=== PATIENT | male | born 1975 | race African-American/Black ===

== ENCOUNTER 2019-04-29 13:45 | Emergency (ER) | payer SELFPAY ==
--- NOTE | 2019-04-29 13:50 | EDM.PDOC ---
ED HPI GENERAL MEDICAL PROBLEM - General Chief Complaint: Chest Pain Stated Complaint: CHEST DISCOMFORT Time Seen by Provider: 04/29/19 13:50 Source of Information: Reports: Patient History Limitations: Reports: No Limitations - History of Present Illness INITIAL COMMENTS - FREE TEXT/NARRATIVE: History of present illness: []Patient has a long history of untreated high blood pressure as well as a strong family history for high blood pressure. He was having a job physical today and his blood pressure was 189/110 he was told to go straight to the ER for reevaluation. He did not have any symptoms at the time however on the drive over states he had 1-2 seconds of left-sided chest pain that felt like a "string " pulling on his lower left ribs. Denies shortness of breath, headache, blurry vision, back pain and has no chest pain at this time. Review of systems: As per history of present illness and below otherwise all systems reviewed and negative. Past medical history: As per history of present illness and as reviewed below otherwise noncontributory. Surgical history: As per history of present illness and as reviewed below otherwise noncontributory. Social history: No reported history of drug or alcohol abuse. Family history: As per history of present illness and as reviewed below otherwise noncontributory. Physical exam: General: Well developed, well nourished in NAD HEENT: Atraumatic, normocephalic, pupils reactive, negative for conjunctival pallor or scleral icterus, mucous membranes moist, throat clear, neck supple, nontender, trachea midline. Lungs: Clear to auscultation, breath sounds equal bilaterally, chest nontender. Heart: S1S2, regular, negative for clicks, rubs, or JVD. Abdomen: NABS, Soft, nondistended, nontender. Negative for masses or hepatosplenomegaly. Negative for costovertebral tenderness. Pelvis: Stable nontender. Genitourinary: Deferred. Rectal: Deferred. Extremities: Atraumatic, negative for cords or calf pain. Neurovascular unremarkable. Neuro: Awake, alert, oriented. Cranial nerves II through XII unremarkable. Cerebellum unremarkable. Motor and sensory unremarkable throughout. Exam nonfocal. Skin:warm and dry Diagnostics: CBC, chemistry, troponin, EKG, chest x-ray Therapeutics: Clonidine, labetalol ED Course: Stable and asymptomatic Impression: Uncontrolled chronic hypertension Prescriptions: none Plan: Take meds as directed, follow up with your primary care physician, return to ER if symptoms worsen or change. Definitive disposition and diagnosis as appropriate pending reevaluation and review of above. - Related Data Allergies Allergy/AdvReac Type Severity Reaction Status Date / Time No Known Allergies Allergy Verified 04/29/19 14:04 Home Meds: Home Meds . [No Known Home Meds] 04/29/19 [History] ED ROS GENERAL - Review of Systems Review Of Systems: See Below ED EXAM, GENERAL - Physical Exam Exam: See Below Course - Vital Signs Last Recorded V/S: Last Vital Signs Temp 97 F 04/29/19 14:04 Pulse 74 04/29/19 14:44 Resp 16 04/29/19 14:44 BP 195/114 H 04/29/19 14:44 Pulse Ox 98 04/29/19 14:44 - Orders/Labs/Meds Orders: Active Orders 24 hr Category Date Time Status EKG Documentation Completion [RC] STAT Care 04/29/19 13:58 Active Sodium Chloride 0.9% [Saline Flush] Med 04/29/19 13:58 Active 10 ml FLUSH ASDIRECTED PRN Sodium Chloride 0.9% [Saline Flush] Med 04/29/19 13:58 Active 2.5 ml FLUSH ASDIRECTED PRN Saline Lock Insert [OM.PC] Stat Oth 04/29/19 13:57 Ordered Medication Orders Sodium Chloride (Saline Flush) 10 ml FLUSH ASDIRECTED PRN PRN Reason: Keep Vein Open Sodium Chloride (Saline Flush) 2.5 ml FLUSH ASDIRECTED PRN PRN Reason: Keep Vein Open Labs: Laboratory Tests 04/29/19 04/29/19 Range/Units 13:56 14:30 WBC 8.00 (4.0-11.0) K/uL RBC 5.22 (4.50-5.90) M/uL Hgb 15.4 (13.0-17.0) g/dL Hct 45.5 (38.0-50.0) % MCV 87.2 (80.0-98.0) fL MCH 29.5 (27.0-32.0) pg MCHC 33.8 (31.0-37.0) g/dL RDW Std Deviation 44.2 (28.0-62.0) fl RDW Coeff of Braden 14 (11.0-15.0) % Plt Count 218 (150-400) K/uL MPV 10.50 (7.40-12.00) fL Neut % (Auto) 55.4 (48.0-80.0) % Lymph % (Auto) 33.5 (16.0-40.0) % [place] % (Auto) 8.1 (0.0-15.0) % Eos % (Auto) 2.5 (0.0-7.0) % Baso % (Auto) 0.5 (0.0-1.5) % Neut # (Auto) 4.4 (1.4-5.7) K/uL Lymph # (Auto) 2.7 H (0.6-2.4) K/uL [place] # (Auto) 0.7 (0.0-0.8) K/uL Eos # (Auto) 0.2 (0.0-0.7) K/uL Baso # (Auto) 0.0 (0.0-0.1) K/uL Nucleated RBC % 0.0 /100WBC Nucleated RBCs # 0 K/uL Sodium 140 (136-148) mmol/L Potassium 3.8 (3.5-5.1) mmol/L Chloride 102 (98-107) mmol/L Carbon Dioxide 29.1 (21.0-32.0) mmol/L BUN 10 (7.0-18.0) mg/dL Creatinine 1.2 (0.8-1.3) mg/dL Est Cr Clr Drug Dosing 80.19 mL/min Estimated GFR (MDRD) > 60.0 ml/min Glucose 96 (74-106) mg/dL Calcium 9.0 (8.5-10.1) mg/dL Total Bilirubin 0.6 (0.2-1.0) mg/dL AST 18 (15-37) IU/L ALT 30 (14-63) IU/L Alkaline Phosphatase 87 (46-116) U/L Troponin I < 0.050 (0.000-0.056) ng/mL Total Protein 7.9 (6.4-8.2) g/dL Albumin 3.7 (3.4-5.0) g/dL Globulin 4.2 H (2.6-4.0) g/dL Albumin/Globulin Ratio 0.9 (0.9-1.6) Meds: Medications Generic Name Dose Route Start Last Admin Trade Name Freq PRN Reason Stop Dose Admin Sodium Chloride 10 ml 04/29/19 13:58 Saline Flush FLUSH ASDIRECTED PRN Keep Vein Open Sodium Chloride 2.5 ml 04/29/19 13:58 Saline Flush FLUSH ASDIRECTED PRN Keep Vein Open Discontinued Medications Generic Name Dose Route Start Last Admin Trade Name Freq PRN Reason Stop Dose Admin Clonidine HCl 0.2 mg 04/29/19 13:58 04/29/19 14:14 Catapres PO 04/29/19 13:59 0.2 mg ONETIME ONE Administration Labetalol HCl 20 mg 04/29/19 14:29 04/29/19 14:45 Normodyne IVPUSH 04/29/19 14:30 4 ml ONETIME ONE Administration Protocol Departure - Departure Time of Disposition: 15:21 Disposition: Home, Self-Care 01 Condition: Good Clinical Impression: Uncontrolled hypertension Referrals: PCP,Unobtain [Primary Care Provider] - Forms: ED Department Discharge Additional Instructions: The following information is given to patients seen in the emergency department who are being discharged to home. This information is to outline your options for follow-up care. We provide all patients seen in our emergency department with a follow-up referral. The need for follow-up, as well as the timing and circumstances, are variable depending upon the specifics of your emergency department visit. If you don't have a primary care physician on staff, we will provide you with a referral. We always advise you to contact your personal physician following an emergency department visit to inform them of the circumstance of the visit and for follow-up with them and/or the need for any referrals to a consulting specialist. The emergency department will also refer you to a specialist when appropriate. This referral assures that you have the opportunity for follow-up care with a specialist. All of these measure are taken in an effort to provide you with optimal care, which includes your follow-up. Under all circumstances we always encourage you to contact your private physician who remains a resource for coordinating your care. When calling for follow-up care, please make the office aware that this follow-up is from your recent emergency room visit. If for any reason you are refused follow-up, please contact the [facility] Emergency Department at and asked to speak to the emergency department charge nurse. Take meds as directed, follow up with your primary care physician, return to ER if symptoms worsen or change. [facility] [address] [place] [id number] - My Orders Last 24 Hours: My Active Orders 04/29/19 13:57 Saline Lock Insert [OM.PC] Stat 04/29/19 13:58 EKG Documentation Completion [RC] STAT Sodium Chloride 0.9% [Saline Flush] 10 ml FLUSH ASDIRECTED PRN Sodium Chloride 0.9% [Saline Flush] 2.5 ml FLUSH ASDIRECTED PRN - Assessment/Plan Last 24 Hours: My Active Orders 04/29/19 13:57 Saline Lock Insert [OM.PC] Stat 04/29/19 13:58 EKG Documentation Completion [RC] STAT Sodium Chloride 0.9% [Saline Flush] 10 ml FLUSH ASDIRECTED PRN Sodium Chloride 0.9% [Saline Flush] 2.5 ml FLUSH ASDIRECTED PRN
[2019-04-29] MEDS ORDERED: cloNIDine 0.1 MG Tab PO ONE (13:58)
[2019-04-29] MEDS ORDERED: Sodium Chloride 0.9% 2.5 ML Syringe FLUSH PRN (13:58)
[2019-04-29] MEDS ORDERED: Sodium Chloride 0.9% 10 ML Syringe FLUSH PRN (13:58)
[2019-04-29] MEDS ORDERED: Labetalol 100 MG/20 ML MDV IVPUSH ONE (14:29)
--- NOTE | 2019-04-29 14:46 | CR ---
Chest: Portable view of the chest was obtained. Comparison: No previous chest x-ray. Heart size and mediastinum are normal. Lungs are clear. Bony structures are grossly intact. Impression: Nothing acute is seen on portable chest x-ray. Diagnostic code #1 MTDD
[2019-04-29 15:10] LABS: BLOOD UREA NITROGEN,BUN 10 mg/dL (7.0-18.0); CARBON DIOXIDE,CO2 29.1 mmol/L (21.0-32.0); CHLORIDE,CL 102 mmol/L (98-107); GLUCOSE RANDOM 96 mg/dL (74-106); POTASSIUM,K 3.8 mmol/L (3.5-5.1); SODIUM,NA 140 mmol/L (136-148)
== END 2019-04-29 16:00 | disposition home or self-care (01) ==
LOC: MW.ED 13:45
DX: I10 Essential (primary) hypertension (principal)
CPT/HCPCS: 36415; 71045; 80053; 84484; 85025; 93005; 96374; 99285; A9270; J3490; 99283

== ENCOUNTER 2020-08-21 23:04 | Emergency (ER) | payer SELFPAY ==
[2020-08-21] MEDS ORDERED: Sodium Chloride 0.9% 2.5 ML Syringe FLUSH PRN (23:20)
[2020-08-21] MEDS ORDERED: cloNIDine 0.1 MG Tab PO ONE (23:20)
[2020-08-21] MEDS ORDERED: Sodium Chloride 0.9% 10 ML Syringe FLUSH PRN (23:20)
[2020-08-21] MEDS ORDERED: Diltiazem 180 MG Cap.CD PO ONE (23:46)
--- NOTE | 2020-08-21 23:46 | EDM.PDOC ---
ED HPI GENERAL MEDICAL PROBLEM - General Chief Complaint: General Stated Complaint: MEDICAL CLEARANCE Time Seen by Provider: 08/21/20 23:10 - History of Present Illness INITIAL COMMENTS - FREE TEXT/NARRATIVE: HISTORY AND PHYSICAL: History of present illness: This is a 45-year-old gentleman with a history significant for noncompliance with hypertension who presents ER today for medical clearance by law enforcement and was noted to have an elevated blood pressure and so was presented to the ED for evaluation. Patient reports that he has been told he has had hypertension for quite some time however he has not been financially able to afford seeing of family physician or getting his medications. Patient reports that his systolic blood pressure is usually greater than 200 and leaves it usually in the 220 range. Patient reports his diastolic blood pressure is always greater than 120. Patient reports that his entire family suffers with hypertension and diabetes. He reports that he has had no symptoms and that his blood pressure has been elevated for quite some time and he has been asymptomatic. Patient denies any recent fevers, shakes, chills, nausea, vomiting, diarrhea, dysuria, frequency, urgency, chest pain, shortness of breath, lower extremity edema, urinary changes, visual changes, altered mentation, confusion, weakness to his upper or lower extremities. Review of systems: As per history of present illness and below otherwise all systems reviewed and negative. Past medical history: As per history of present illness and as reviewed below otherwise noncontributory. Surgical history: As per history of present illness and as reviewed below otherwise noncontributory. Social history: No reported history of drug or alcohol abuse. Family history: As per history of present illness and as reviewed below otherwise noncontributory. Physical exam: This patient was seen and evaluated during the 2019 SARS-CoV-2 novel coronavirus pandemic period. Community viral transmission is ongoing at time of this encounter and the emergency department is operating under pandemic response procedures. Constitutional: Patient is oriented to person, place, and time. Appears well- developed and well-nourished. No distress. HEENT: Moist mucous membranes Head: Normocephalic and atraumatic Eyes: Right eye exhibits no discharge. Left eye exhibits no discharge. No scleral icterus, pupils equally round and reactive to light. Extraocular motions intact, no nystagmus. Neck: Normal range of motion. No tracheal deviation present. Cardiovascular: Normal rate and regular rhythm. No murmurs gallops or rubs Pulmonary: Effort normal, no respiratory distress. No wheezing rales or rhonchi Abdominal: No distention, soft, nontender, no rebound or guarding, no palpable mass, no pulsatile mass. Musculoskeletal: Normal range of motion, no lower extremity edema, no calf tenderness Neurologic: Alert and oriented to person, place and time. Skin: [place], warm and dry. Psychiatric: Normal mood and affect. Behavior is normal. Judgment and thought content normal. Nursing note and vital signs have been reviewed Diagnostics: CBC, CMP EKG: As interpreted by ER physician: Sandra: Nonspecific ST-T wave abnormalities Normal axis No evidence of ST elevation CA Normal sinus rhythm heart rate of 97 Therapeutics: Clonidine 0.2 mg p.o. Cardizem CD 180 mg p.o. Assessment and plan: This is a 45-year-old gentleman with a history of chronic hypertension that has been poorly controlled and the patient's been extremely noncompliant. Patient reports he does have insurance through work however he has been told that he would have to pay up to $2000 as a co-pay/deductible. I have had a long discussion with the patient and have asked him to call the number on the back of his insurance card to verify this information is this is not seen like it is accurate information to me. I have researched different medications that I can prescribe for him here and that he would be able to afford through the good Rx prescription plan. Patient reports he does have a good Rx prescription card and will be able to utilize it. I have identified Cardizem CD is an appropriate medication for him. Patient reports that he can go to [facility] pharmacy and obtain 30 capsules of the 180 mg CD tablets for $10.36. Patient reports that he would be able for that without any difficulty or hardship. I have recommended to the patient that we would assist him with obtaining a primary care physician. We will give him the phone numbers to the [facility] who will be able assist him with primary care issues as I do not believe that it would cost him the $2000 per year that he was told by the employer. 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 We are obtaining a CBC and CMP to obtain his creatinine. Patient's EKG reveals no evidence of ST elevation CA and the patient has no evidence of left ventricular, right ventricular, left atrial or right atrial hypertrophy on his EKG. Patient does have poor R wave progression in leads V2 and V3 however he is isoelectric in V4. Patient does not have any complaints of chest pain or cardiac symptoms. Patient does not have any neurological symptoms. Patient does not have any renal symptoms. Patient reports no visual symptoms either. At this time, I do not feel that the patient would need criteria for inpatient or observation level of care to adjust his blood pressure. Patient will need close monitoring of his blood pressure as an outpatient and will need slow progressive decline in his blood pressure over the next couple weeks. Patient understands the necessity to follow-up with the family doctor and to be complia nt with his medications. Reassessment at the time of disposition demonstrates that the patient is in no acute distress. The patient has remained stable throughout the entire ED visit and is without objective evidence for acute process requiring urgent intervention or hospitalization. The patient is stable for discharge, counseling is provided as documented above, discussed symptomatic treatment and specific conditions for return. I have spoken with the patient/caregiver and discussed todays findings, in addition to providing specific details for the plan of care. Questions are answered and there is agreement with the plan. Definitive disposition and diagnosis as appropriate pending reevaluation and review of above. - Related Data Allergies Allergy/AdvReac Type Severity Reaction Status Date / Time No Known Allergies Allergy Verified 08/21/20 23:16 Home Meds: Home Meds dilTIAZem HCL [Diltiazem 24Hr Cd] 180 mg PO DAILY #30 cap.er.24h 08/21/20 [Rx] dilTIAZem HCL [Diltiazem 24Hr Cd] 180 mg PO DAILY #30 cap.er.24h 08/22/20 [Rx] Past Medical History Cardiovascular History: Reports: Hypertension Endocrine/Metabolic History: Reports: Other (See Below) Other Endocrine/Metabolic History: borderline diabetes - Infectious Disease History Infectious Disease History: Reports: Mumps - Past Surgical History GI Surgical History: Reports: Hernia, Inguinal Social & Family History - Family History Family Medical History: No Pertinent Family History - Tobacco Use Packs/Tins Daily: 1 - Caffeine Use Caffeine Use: Reports: None - Recreational Drug Use Recreational Drug Use: Yes Recreational Drug Type: Reports: Marijuana/Hashish Recreational Drug Use Frequency: Weekly ED ROS GENERAL - Review of Systems Review Of Systems: See Below ED EXAM, GENERAL - Physical Exam Exam: See Below Course - Vital Signs Last Recorded V/S: Last Vital Signs Temp 97 F 08/22/20 00:19 Pulse 99 08/22/20 00:19 Resp 16 08/22/20 00:19 BP 194/125 H 08/22/20 00:19 Pulse Ox 98 08/22/20 00:19 - Orders/Labs/Meds Orders: Active Orders 24 hr Category Date Time Status EKG Documentation Completion [RC] AM Care 08/21/20 23:20 Active Sodium Chloride 0.9% [Saline Flush] Med 08/21/20 23:20 Active 10 ml FLUSH ASDIRECTED PRN Sodium Chloride 0.9% [Saline Flush] Med 08/21/20 23:20 Active 2.5 ml FLUSH ASDIRECTED PRN Saline Lock Insert [OM.PC] Stat Oth 08/21/20 23:20 Ordered Medication Orders Sodium Chloride (Saline Flush) 10 ml FLUSH ASDIRECTED PRN PRN Reason: Keep Vein Open Last Admin: 08/21/20 23:30 Dose: 10 ml Documented by: KEN Sodium Chloride (Saline Flush) 2.5 ml FLUSH ASDIRECTED PRN PRN Reason: Keep Vein Open Last Admin: 08/21/20 23:30 Dose: 2.5 ml Documented by: KEN Labs: Laboratory Tests 08/21/20 08/21/20 Range/Units 23:33 23:33 WBC 6.92 (4.0-11.0) K/uL RBC 5.30 (4.50-5.90) M/uL Hgb 16.4 (13.0-17.0) g/dL Hct 47.8 (38.0-50.0) % MCV 90.2 (80.0-98.0) fL MCH 30.9 (27.0-32.0) pg MCHC 34.3 (31.0-37.0) g/dL RDW Std Deviation 46.5 (28.0-62.0) fl RDW Coeff of Braden 14 (11.0-15.0) % Plt Count 278 (150-400) K/uL MPV 10.00 (7.40-12.00) fL Neut % (Auto) 61.1 (48.0-80.0) % Lymph % (Auto) 30.9 (16.0-40.0) % Ross % (Auto) 7.1 (0.0-15.0) % Eos % (Auto) 0.6 (0.0-7.0) % Baso % (Auto) 0.3 (0.0-1.5) % Neut # (Auto) 4.2 (1.4-5.7) K/uL Lymph # (Auto) 2.1 (0.6-2.4) K/uL Ross # (Auto) 0.5 (0.0-0.8) K/uL Eos # (Auto) 0.0 (0.0-0.7) K/uL Baso # (Auto) 0.0 (0.0-0.1) K/uL Nucleated RBC % 0.0 /100WBC Nucleated RBCs # 0 K/uL Sodium 136 (136-148) mmol/L Potassium 3.2 L (3.5-5.1) mmol/L Chloride 99 (98-107) mmol/L Carbon Dioxide 22.6 (21.0-32.0) mmol/L BUN 10 (7.0-18.0) mg/dL Creatinine 1.1 (0.8-1.3) mg/dL Est Cr Clr Drug Dosing 86.59 mL/min Estimated GFR (MDRD) > 60.0 ml/min Glucose 127 H (74-106) mg/dL Calcium 8.3 L (8.5-10.1) mg/dL Total Bilirubin 0.3 (0.2-1.0) mg/dL AST 20 (15-37) IU/L ALT 29 (14-63) IU/L Alkaline Phosphatase 95 (46-116) U/L Total Protein 8.6 H (6.4-8.2) g/dL Albumin 3.9 (3.4-5.0) g/dL Globulin 4.7 H (2.6-4.0) g/dL Albumin/Globulin Ratio 0.8 L (0.9-1.6) Meds: Medications Generic Name Dose Route Start Last Admin Trade Name Freq PRN Reason Stop Dose Admin Sodium Chloride 10 ml 08/21/20 23:20 08/21/20 23:30 Saline Flush FLUSH 10 ml ASDIRECTED PRN Administration Keep Vein Open Sodium Chloride 2.5 ml 08/21/20 23:20 08/21/20 23:30 Saline Flush FLUSH 2.5 ml ASDIRECTED PRN Administration Keep Vein Open Discontinued Medications Generic Name Dose Route Start Last Admin Trade Name Lopez PRN Reason Stop Dose Admin Clonidine HCl 0.2 mg 08/21/20 23:20 08/21/20 23:30 Catapres PO 08/21/20 23:21 0.2 mg ONETIME ONE Administration Diltiazem HCl 180 mg 08/21/20 23:46 08/22/20 00:06 Cardizem Cd PO 08/21/20 23:47 180 mg ONETIME ONE Administration Departure - Departure Time of Disposition: 00:18 Disposition: Home, Self-Care 01 Condition: Good Clinical Impression: Hypertension - Discharge Information Prescriptions: dilTIAZem HCL [Diltiazem 24Hr Cd] 180 mg PO DAILY #30 cap.er.24h Instructions: Hypertension, Adult, [id number] Referrals: PCP,None [Primary Care Provider] - Forms: ED Department Discharge Additional Instructions: You were seen and evaluated in the ER today for your extremely elevated blood p ressure. Although I understand that you have had blood pressures as high for the last several years, this is not healthy for you. Your blood pressure needs to be gradually brought down over the next several weeks. In the ER we have given you medication to initiate that process. You have also been given a dose of Cardizem 180 mg CD tablet to take daily. You are given a dose already here in the ER and should start taking it tomorrow at approximately 5 PM. You should take it daily thereafter. You will also be given the phone number for our clinics here in [place] they can call to make an appointment so they can help you with maintaining and adjusting her blood pressure medications. Please return to the ER if you start developing any new or concerning symptoms such as chest pain, dizziness, headache, blurred vision, change in urinary output, or any new or concerning symptoms. The following information is given to patients seen in the emergency department who are being discharged to home. This information is to outline your options for follow-up care. We provide all patients seen in our emergency department with a follow-up referral. The need for follow-up, as well as the timing and circumstances, are variable depending upon the specifics of your emergency department visit. If you don't have a primary care physician on staff, we will provide you with a referral. We always advise you to contact your personal physician following an emergency department visit to inform them of the circumstance of the visit and for follow-up with them and/or the need for any referrals to a consulting specialist. The emergency department will also refer you to a specialist when appropriate. This referral assures that you have the opportunity for follow-up care with a specialist. All of these measure are taken in an effort to provide you with optimal care, which includes your follow-up. Under all circumstances we always encourage you to contact your private physician who remains a resource for coordinating your care. When calling for follow-up care, please make the office aware that this follow-up is from your recent emergency room visit. If for any reason you are refused follow-up, please contact the [facility] Emergency Department at and asked to speak to the emergency department charge nurse. [facility] - Primary Care [address] [place] [address] [id number] [address] [address] Sepsis Event Note (ED) - Evaluation Sepsis Screening Result: No Definite Risk - Focused Exam Vital Signs: Vital Signs Temp Pulse Resp BP BP Pulse Ox 08/22/20 00:19 97 F 99 16 194/125 H 98 08/21/20 23:30 218/126 H 08/21/20 23:14 97 F 111 H 18 218/126 H 97 - My Orders Last 24 Hours: My Active Orders 08/21/20 23:20 EKG Documentation Completion [RC] AM Sodium Chloride 0.9% [Saline Flush] 10 ml FLUSH ASDIRECTED PRN Sodium Chloride 0.9% [Saline Flush] 2.5 ml FLUSH ASDIRECTED PRN Saline Lock Insert [OM.PC] Stat - Assessment/Plan Last 24 Hours: My Active Orders 08/21/20 23:20 EKG Documentation Completion [RC] AM Sodium Chloride 0.9% [Saline Flush] 10 ml FLUSH ASDIRECTED PRN Sodium Chloride 0.9% [Saline Flush] 2.5 ml FLUSH ASDIRECTED PRN Saline Lock Insert [OM.PC] Stat
[2020-08-22 00:11] LABS: BLOOD UREA NITROGEN,BUN 10 mg/dL (7.0-18.0); CARBON DIOXIDE,CO2 22.6 mmol/L (21.0-32.0); CHLORIDE,CL 99 mmol/L (98-107); GLUCOSE RANDOM 127 mg/dL (74-106); POTASSIUM,K 3.2 mmol/L (3.5-5.1); SODIUM,NA 136 mmol/L (136-148)
== END 2020-08-22 00:29 | disposition home or self-care (01) ==
LOC: MW.ED 23:04
DX: I10 Essential (primary) hypertension (principal); Z79.899 Other long term (current) drug therapy; Z72.0 Tobacco use
CPT/HCPCS: 36415; 80053; 85025; 93005; 99284; A9270; 93010; 99283

== ENCOUNTER 2021-10-06 20:07 | Emergency (ER) | payer SELFPAY | END 2021-10-06 20:35 | disposition left against medical advice (07) | LOC: MW.ED 20:07 | DX: Z53.21 Procedure and treatment not carried out due to patient leaving prior to being seen by health care provider (principal) ==

== ENCOUNTER 2021-11-28 11:47 | Emergency (ER) | payer SELFPAY | END 2021-11-28 12:39 | LOC: MW.ED 11:47 | DX: I10 Essential (primary) hypertension (principal) | CPT/HCPCS: 99283 ==

== ENCOUNTER 2022-01-21 09:51 | Emergency (ER) | payer SELFPAY | END 2022-01-21 10:34 | LOC: MW.ED 09:51 | DX: I10 Essential (primary) hypertension (principal); Z02.89 Encounter for other administrative examinations; Z79.899 Other long term (current) drug therapy | CPT/HCPCS: 99283 ==

== ENCOUNTER 2022-09-25 11:59 | Emergency (ER) | payer OTHER ==
[2022-09-25] MEDS ORDERED: Acetaminophen/HYDROcodone 325-5 MG Tab PO ONE (12:23)
== END 2022-09-25 13:51 | disposition home or self-care (01) ==
LOC: MW.ED 11:59
DX: S70.01XA Contusion of right hip, initial encounter (principal); I10 Essential (primary) hypertension; Z91.14 Patient's other noncompliance with medication regimen; Z79.899 Other long term (current) drug therapy; W00.0XXA Fall on same level due to ice and snow, initial encounter
CPT/HCPCS: 73502; 99283; A9270

== ENCOUNTER 2024-01-03 02:20 | Emergency (ER) | payer SELFPAY ==
[2024-01-03] MEDS: Diltiazem 180 MG Cap.CD PO ONE (03:05)
== END 2024-01-03 03:07 ==
LOC: MW.ED 02:20
DX: I10 Essential (primary) hypertension (principal); F17.210 Nicotine dependence, cigarettes, uncomplicated
CPT/HCPCS: 99283; A9270

== ENCOUNTER 2024-01-03 17:06 | Emergency (ER) | payer SELFPAY | END 2024-01-03 18:06 | disposition home or self-care (01) | LOC: MW.ED 17:06 | DX: I10 Essential (primary) hypertension (principal); Z75.8 Other problems related to medical facilities and other health care | CPT/HCPCS: 99283 ==

== ENCOUNTER 2024-04-15 19:00 | Emergency (ER) | payer SELFPAY | END 2024-04-15 19:15 | disposition left against medical advice (07) | LOC: MW.ED 19:00 | DX: Z53.21 Procedure and treatment not carried out due to patient leaving prior to being seen by health care provider (principal) ==